=== PATIENT | female | born 1930 | race Caucasian/White ===

== ENCOUNTER 2016-08-13 22:19 | Emergency (ER) | payer OTHER ==
[~2016-08-13] VITALS: Ht 167.6 cm; Wt 72.6 kg
--- NOTE | ~2016-08-13 | EKG ---
[place] [address] [facility] [place] [address] ELECTROCARDIOGRAM REPORT Name: DYLONCECILETEJINDER Chadwick Room #: [facility]#: [id number] Admission: 08/13/16 Attend Phys: Discharge: 08/14/16 Date of : 34 Report #: [id number] THIS REPORT FOR: //name// [facility] ED Test Date: 2016-08-13 Test Time: 22:50:19 Pat Name: HARISH OSBORNE Department: Room: Gender: F Community Development Planner: DEBBY : 1930 Requested By: Ernst Villa Order Number: [id number] MD: Keron May Measurements Intervals [place] Rate: 65 P: 100 MT: 278 QRS: -8 QRSD: 109 T: 49 QT: 446 QTc: 464 Interpretive Statements Sinus rhythm Prolonged MT interval Probable left atrial enlargement RSR' in V1 or V2, probably normal variant Minimal ST depression, lateral leads No previous ECG available for comparison Electronically Signed On 08-14-2016 21:14:28 CDT by Keron May [email or web address] <ELECTRONICALLY SIGNED> By: Keron May MD 08/14/162113 49 49 Keron May MD /EDDIE
[2016-08-13 22:48] LABS: ABSOLUTE NEUTROPHILS 8.9 thou/uL (1.4-8.2); BASOPHILS 0.7 % (0.0-2.0); EOSINOPHILS 2.5 % (0.0-3.0); HEMATOCRIT 38.5 % (37.0-47.0); HEMOGLOBIN 12.6 gm/dL (12.0-15.0); LYMPHOCYTES 19.2 % (24.0-44.0); MCH 28.9 pg (26.0-34.0); MCHC 32.8 g/dL (28.0-37.0); MCV 88.1 fL (80.0-100.0); MONOCYTES 8.5 % (1.0-8.0); PLATELET COUNT 351 thou/uL (150-400); POLYS 69.1 % (36.0-66.0); RBC 4.37 mil/uL (4.20-5.00); RDW 15.5 % (10.5-14.5); WBC 12.9 thou/uL (4.0-11.0)
[2016-08-13 22:50] LABS: MANUAL DIFF NO
[2016-08-13 22:56] LABS: ANION GAP 9 mmol/L (7-16); BUN 23 mg/dL (7-18); CALCIUM 8.8 mg/dL (8.5-10.1); CHLORIDE 94 mmol/L (98-107); CO2 29 mmol/L (21-32); GLUCOSE 112 mg/dL (74-106); POTASSIUM 3.8 mmol/L (3.5-5.1); SODIUM 132 mmol/L (136-145)
[2016-08-13 23:04] LABS: ALBUMIN 3.4 g/dL (3.4-5.0); ALKALINE PHOSPHATASE 120 U/L (46-116); SGOT 20 U/L (15-37); SGPT 23 U/L (30-65); TOTAL BILIRUBIN 0.2 mg/dL (<0.1-1.0); TROPONIN-I < 0.04 ng/mL (<0.04-0.07)
[2016-08-13 23:50] LABS: URINE BILIRUBIN NEGATIVE (Negative); URINE BLOOD TRACE (Negative); URINE COLOR YELLOW; URINE GLUCOSE-RANDOM* NEGATIVE (Negative); URINE KETONES NEGATIVE (Negative); URINE LEUKOCYTES-REFLEX NEGATIVE (Negative); URINE PROTEIN (DIPSTICK) NEGATIVE (Negative); URINE SPECIFIC GRAVITY 1.015 (1.003-1.035); URINE UROBILINOGEN 0.2 E.U./dl (0.2-1.0)
[2016-08-14] MEDS ORDERED: ZOFRAN ODT4 MG DISSOLVE (00:17)
[2016-08-14] MEDS ORDERED: TRAMADOL 50 MG50 MG PO (00:17)
[2016-08-14] MEDS ORDERED: PRILOSEC 20 MG20 MG PO (00:17)
[2016-08-14 00:46] VITALS: BP 155/59
== END 2016-08-14 00:47 | disposition home or self-care (01) ==
LOC: ER 22:19
PROVIDERS: Emergency Medicine
DX: K85.90 Acute pancreatitis without necrosis or infection, unspecified (principal); J44.1 Chronic obstructive pulmonary disease with (acute) exacerbation; I10 Essential (primary) hypertension; I48.91 Unspecified atrial fibrillation; Z90.710 Acquired absence of both cervix and uterus; Z90.49 Acquired absence of other specified parts of digestive tract; Z98.890 Other specified postprocedural states